=== PATIENT | male | born 1990 | race Caucasian/White ===

== ENCOUNTER → 2021-05-12 08:46 | Outpatient (CLI) | payer BC, SELFPAY ==
--- NOTE | ~2021-05-12 | XR_ITS ---
EXAMINATION: XR thoracic spine 2V DATE: 05/12/2021 09:49 INDICATION: Upper thoracic spine pain TECHNIQUE: AP, lateral and lateral swimmer's views of the thoracic spine were obtained. COMPARISON: None. FINDINGS: Thoracic dextrocurvature is noted. Bone alignment is normal. There is no fracture. The vert ebral body heights and alignment are maintained. The intervertebral disc spaces are normal. The visua lized lungs are free of acute opacities. The cardiomediastinal silhouette is normal. IMPRESSION: 1. No acute osseous abnormality. Reviewed, dictated and finalized at location B.
--- NOTE | ~2021-05-12 | XR_ITS ---
EXAMINATION:[id number] DATE: 05/12/2021 09:49 INDICATION: Neck pain TECHNIQUE: AP, lateral, lateral swimmers and odontoid views of the cervical spine are provided. COMPARISON: None FINDINGS: Alignment is normal. The odontoid is intact. No fracture is identified. Vertebral body heig hts and disk spaces are normal. Prevertebral soft tissues are normal. IMPRESSION: 1. Unremarkable cervical spine. Reviewed, dictated and finalized at location B.
== END ==
PROVIDERS: Visit Provider Chiropractor
DX: M54.2 Cervicalgia (principal); M54.6 Pain in thoracic spine
CPT/HCPCS: 72040; 72070